=== PATIENT | female | born 1960 | race Caucasian/White ===

== ENCOUNTER 2022-11-25 10:20 | Outpatient (CLI) | payer OTHER, SELFPAY | END 2022-11-25 10:21 | disposition home or self-care (01) | PROVIDERS: PCP Internal Medicine; Referring Provider Internal Medicine; Visit Provider Internal Medicine | DX: Z00.00 Encounter for general adult medical examination without abnormal findings (principal); E03.9 Hypothyroidism, unspecified; E53.8 Deficiency of other specified B group vitamins; Z13.6 Encounter for screening for cardiovascular disorders | CPT/HCPCS: 80061; 82607; 82947; 84443 ==

== ENCOUNTER 2023-05-12 15:27 | Outpatient (CLI) | payer OTHER, SELFPAY | END 2023-05-12 15:28 | disposition home or self-care (01) | PROVIDERS: PCP Internal Medicine; Referring Provider Internal Medicine; Visit Provider Physician Assistant | DX: R30.0 Dysuria (principal); N39.0 Urinary tract infection, site not specified | CPT/HCPCS: 87086; 87186 ==

== ENCOUNTER 2023-05-26 13:19 | Outpatient (CLI) | payer OTHER, SELFPAY | END 2023-05-26 13:20 | disposition home or self-care (01) | LOC: NFLDREF 05-28 08:25 | PROVIDERS: PCP Internal Medicine; Referring Provider Internal Medicine; Visit Provider Registered Nurse | DX: N39.0 Urinary tract infection, site not specified (principal); N30.01 Acute cystitis with hematuria; Z13.89 Encounter for screening for other disorder | CPT/HCPCS: 87086 ==

== ENCOUNTER 2024-02-09 10:07 | Outpatient (CLI) | payer OTHER, SELFPAY ==
--- OUTSIDE RECORDS SUMMARY | 2024-02-13 15:55 | XMS_ITS | Clinical Summary ---
Author Organization [facility] Address [address] [place] [id number] Care Team Providers Care Law Instructor Name Role Phone System, Provider Not In Primary Care Provider Un available Allergies Active Allergy Reactions Criticality Noted Date Comments Sulfa Antibiotics Other (See Comments),Rash Medium 09/18/2015 Skin turned orange Medications No known medications Social History Tobacco Use Types Packs/Day Years Used Date Smoking Tobacco: Never Smokeless Tobacco: Never Alcohol Use Standard Drinks/Week Comments Yes 0 (1 standard drink = 0.6 oz pur e alcohol) Adolescent Education Answer Date Record ed Getting School Help Needed Not on file 06/04 Sex and Gender Information Value Date Recorded Sex Assigned at Not on file Gender Identity Not on file Sexual Orientation Not on file Last Filed Vital Signs Vital Sign Reading Time Taken Comments Blood Pressure 110/70 10/09/2021 4:42 PM DIRECTOR OF PROPERTY MANAGEMENT Pulse 86 10/09/2021 4:42 PM DIRECTOR OF PROPERTY MANAGEMENT Temperature - - Respiratory Rate 16 10/09/2021 4:42 PM DIRECTOR OF PROPERTY MANAGEMENT Oxygen Saturation 97% 10/09/2021 4:42 PM DIRECTOR OF PROPERTY MANAGEMENT Inhaled Oxygen Concentration - - Weight 59.9 kg (132 lb) 10/09/2021 4:42 PM DIRECTOR OF PROPERTY MANAGEMENT Height - - Body Mass Index - - Plan of Treatment Health Maintenance Due Date Last Done Comments ADVANCE CARE PLANNING 1960 ANNUAL REVIEW OF HM ORDERS 1960 CT COLONOGRAPHY 1960 FIT 1960 FLEX SIG 1960 GLUCOSE 1960 YEARLY PREVENTIVE VISIT 1960 sDNA (Cologuard) 1960 COLONOSCOPY 1969 COLORECTAL CANCER SCREENING 1969 HIV SCREENING 1974 HEPATITIS C SCREENING 1977 PAP 1980 LIPID 1999 RSV VACCINE ( & 60+) (1 - 1-dose 60+ series) 2019 COVID-19 Vaccine ( season) 2023 06/06/2022, 02/03/2022, 07/23/2021, Additional history exists MAMMO SCREENING 08/03/2023 08/03/2021 PHQ-2 (once per calendar year) 2023 INFLUENZA VACCINE (Season Ended) 2024 06/06/2022, 05/22/2021, 06/27/2020, Additional history exists DTAP/TDAP/TD IMMUNIZATION (2 - Td or Tdap) 06/26/2025 06/26/2015 Pneumococcal Vaccine: Pediatrics (0 to 5 Years) and At-Risk Patients (6 to 64 Years) Aged Out 04/05/2018, 06/26/2015 No longer eligibl e based on patient's age to complete this topic ZOSTER IMMUNIZATION Completed 03/14/2019, 8 HPV IMMUNIZATION Aged Out No longer e ligible based on patient's age to complete this topic IPV IMMUNIZATION Aged Out No longer e ligible based on patient's age to complete this topic MENINGITIS IMMUNIZATION Aged Out No l onger eligible based on patient's age to complete this topic RSV MONOCLONAL ANTIBODY Aged Out No l onger eligible based on patient's age to complete this topic Care Teams Law Instructor Relationship Specialty Start Date End Date System, Provider Not In PCP - General Clinic 10/09/21
--- OUTSIDE RECORDS SUMMARY | 2024-02-13 15:55 | XMS_ITS | Referral Summary ---
Author Organization [facility] Address [address] [place] [id number] Care Team Providers Care Director Health Name Role Phone System, Provider Not In [...] Comments Blood Pressure 110/70 10/09/2021 4:42 PM VACUUM FORM OPERATOR Pulse 86 10/09/2021 4:42 PM VACUUM FORM OPERATOR Temperature - - Respiratory Rate 16 10/09/2021 4:42 PM VACUUM FORM OPERATOR Oxygen Saturation 97% 10/09/2021 4:42 PM VACUUM FORM OPERATOR Inhaled Oxygen Concentration - - Weight 59.9 kg (132 lb) 10/09/2021 4:42 PM VACUUM FORM OPERATOR Height - - Body Mass Index - - Plan of Treatment Not on file Care Teams Director Health Relationship Specialty Start Date End Date System, Provider Not In PCP - General Clinic 10/09/21
--- OUTSIDE RECORDS SUMMARY | 2024-02-13 15:55 | XMS_ITS | Clinical Summary ---
Author Organization [facility] Address [place], [place] [address] Care Team Providers Care Steel Erector Apprentice Name Role Phone Christa Gallegos MD Primary Care Provider [phone] Pcp, No Unavailable Unavailable Allergies Active Allergy Reactions Criticality Noted Date Comments Sulfa (Sulfonamide Antibiotics) Rash Medium 09/18/2015 Sulfa (Sulfonamide Antibiotics) Other - Describe In Comment Field 09/04/2019 Skin turned orange Medications Medication Sig Dispensed Refills Start Date End Date Status mometasone 0.1% (ELOCON 0.1% CREAM) 0.1 % cream APPLY TO AFFECTED AREA TWICE DAILY FOR SEVEN DAYS THEN WEDNESDAYS & SATURDAYS TWICE DAILY 07/16/2019 Active pimecrolimus (ELIDEL) 1 % cream 07/24/2019 Active levothyroxine (SYNTHROID) 100 mcg tablet 06/17/2019 Active SUMAtriptan (IMITREX) 100 mg tablet TAKE ONE TABLET BY MOUTH AT ONSET OF HEADACHE NEEDED MAY REPEAT ONCE IN 2HRS MAX. 200MG/24HRS 05/24/2019 Active valACYclovir (VALTREX) 1 gram tablet TAKE 2 TABLETS NOW AND 2 TABLETS IN 12 HOURS 06/28/2019 Active loratadine (CLARITIN) 10 mg tablet Take 10 mg by mouth once daily. Active metroNIDAZOLE 0.75 % cream APPLY TO AFFECTED AREA ON FACE ONCE DAILY ON DAYS NOT USING MOMETASONE 03/19/2022 Active estradioL (ESTRACE) 0.01% (0.1 mg/g) vaginal cream 12/25/2022 Active raloxifene (EVISTA) 60 mg tabletIndications:[facility] cancer screening, high risk patient,At high risk for breast cancer,Atypical ductal hyperplasia of breast Take 1 Tablet (60 mg) by mouth once daily. 90 Tablet 3 08/09/2023 Active Active Problems Problem Noted Date Diagnosed Date Atypical ductal hyperplasia of left breast 09/04 Atypical lobular hyperplasia (ALH) of left breas t 09/04/2019 Adenomatous colon polyp 09/22/2015 Overview: Colonoscopy 08/2015 polyp repeat in 5 years Colonoscopy 01/2021 long colon, repeat in 7 years, PEG 8L Encounters Date Type Department Care Team Description 02/06/2024 Telephone [facility] [address] [facility] [place] [address] [place] [address] Armida Blank RN Prior Authorization (Breat MRI ) 01/30/2024 Telephone [facility] [address] [address] [place] [address] Armida Jay RN breast MRI result 01/29/2024 12:36 PM CDT - 01/29/2024 11:59 PM CDT Hospital Encounter [facility] [address] [place] [address] Marisela Dozier PA At high risk for breast cancer 01/29/2024 Travel 01/10/2024 2:15 PM CDT Office Visit [facility] [address] [place] [address] Clay Wheatley, DPM Consult (Right achilles pain) 01/10/2024 Travel from Last 3 Months Family History Medical History Relation Name Comments Cancer-ovarian Maternal Aunt 70's yrs old Cancer No Family History Cancer-breast No Family History Cancer-colon No Family History Cancer-prostate No Family History Relation Name Status Comments Maternal Aunt age 70 Other mat aunt Alive Social History Tobacco Use Types Packs/Day Years Used Date Smoking Tobacco: Never Smokeless Tobacco: Never Tobacco Cessation:Counseling Given: Yes Alcohol Use Standard Drinks/Week Comments Yes 0 (1 standard drink = 0.6 oz pur e alcohol) 5-7 glasses of wine weekly Social Connections Answer Date Recorded Frequency of Communication with Friends and Fami ly Not on file 2021 Financial Resource Strain Answer Date R ecorded Difficulty of Paying Living Expenses Not on file 2021 Difficulty of Paying Living Expenses Not on file 2021 Sex and Gender Information Value Date Recorded Sex Assigned at Not on file Gender Identity Not on file Sexual Orientation Not on file Obstetrics History Last Filed Vital Signs Vital Sign Reading Time Taken Comments Blood Pressure 112/73 01/10/2024 2:26 PM CDT tow er Pulse 62 01/10/2024 2:26 PM CDT Temperature 36.2 ??C (97.2 ??F) 08/09/2023 1:14 PM CS T Respiratory Rate 18 08/09/2023 1:14 PM POND SAWYER Oxygen Saturation 99% 01/10/2024 2:26 PM CDT Inhaled Oxygen Concentration - - Weight 69.9 kg (154 lb) 08/09/2023 1:14 PM POND SAWYER Height 175.3 cm (5' 9) 08/09/2023 1:14 PM POND SAWYER Body Mass Index 22.74 08/09/2023 1:14 PM POND SAWYER Plan of Treatment Health Maintenance Due Date Last Done Comments Tdap 1970 Depression screening for age 12+ 1971 HIV for age 15-65 1974 Hepatitis C screening for age 18-79 1977 Tetanus booster 1979 Pap test for age 21-65 1980 Lipids for age 45-75 2004 Zoster (shingles) series for age 50+ (1 of 2) 2009 Influenza for age 50-64 04/28/2024 BMI (ht and wt on same day) for age 18+ 08/09/2024 08/09/2023, 08/04/2022, 08/03/2021, Additional history exists Mammogram for age 45-75 08/09/2024 08/09/20, 08/04/2022, 08/03/2021, Additional history exists Colonoscopy through age 75 02/05/202602/05, 02/05/2021, 09/18/2015, Additional history exists COVID-19 vaccine series Completed 06/12/20, 06/06/2022, 02/03/2022, Additional history exists Pneumococcal series for age 6-64 Aged Out No longer eligible based on patient's age to complete this topic Procedures Procedure Name Priority Date/Time Associated Diagnosis Comments MR BREAST CAD WWO BILATERAL Routine 01/29/2024 1:34 PM CDT At high risk for breast cancer XR MAMMO TETE BILAT SCREEN Routine 08/09/2023 12:58 PM POND SAWYER Encounter for screening mammogram for malignant neoplasm of breast COLONOSCOPY 02/05/2021 9:55 AM CDT from Last 3 Months or Most Recently Relevant to Health Maintenance Results * MR BREAST CAD WWO BILATERAL (01/29/2024 1:34 PM CDT) Anatomical Region Laterality Modality BREASTS, Breast Left, Breast Right Bilateral Magnetic Resonance 01/30/2024 9:10 AM CDT Narrative 01/30/2024 1:25 PM CDT For Patients: As a result of the Cures Act, medical imaging exams and procedure reports are released immediately into your electronic medical record. ??You may view this report before your referring provider. ?? If you have questions, please contact your health care provider. BILATERAL BREAST MRI WITHOUT AND WITH GADOLINIUM, 01/29/2024 CLINICAL HISTORY: Personal history LEFT breast atypical ductal hyperplasia, atypical lobular hyperplasia FEA and papilloma diagnosed by needle biopsy August 2019. Surgical excision LEFT breast September 20, 2019. INDICATION FOR BREAST MRI: Screening in this woman with increased risk for breast cancer. COMPARISON STUDIES: BILATERAL mammogram 08/09/2023, breast MRI 01/24/2023. CONTRAST: 20 mL Clariscan. TECHNIQUE: The patient was positioned prone using a breast coil. Multiple imaging sequences were obtained using 1-1.5 mm thick slices with no gap. The image sequences include T2-weighted STIR in the axial plane, T1-weighted nonfat-saturated gradient echo in the axial plane, pre- and post-contrast T1-weighted FLASH 3D with fat suppression in the axial plane, and T1-weighted FLASH high resolution 3D with fat suppression in the sagittal plane. Image post-processing was performed on a [employer] workstation. Complex 3D rendering including maximum intensity projections (MIPS) and volumetric renderings were obtained to optimize visualization of the extent of pathology and relationship to the nipple, skin, and chest wall. This aids in determining feasibility of breast conservation surgery. Subtraction, multiplanar reconstruction, mean curve determination, and angiogenesis mapping were also performed. The study was technically adequate. FINDINGS: Amount of Fibroglandular Tissue: Scattered fibroglandular tissue. Breast Background Enhancement: Minimal. RIGHT Breast: No suspicious mass or non mass enhancement. LEFT Breast: No suspicious mass or non-mass enhancement. Excisional biopsy scar . Lymph Nodes: No enlarged or morphologically abnormal lymph nodes. IMPRESSIONS AND RECOMMENDATIONS: Negative for signs of malignancy. Follow-up with annual screening mammography. If continuing breast MRI this best offset from the mammogram by 6 months. BI-RADS Category 2: Benign Dictated by: Tressa Grayson MD @01/30/2024 9:10:47 AM ??CRL/leda Marisela LYLES MR * XR MAMMO TTEE BILAT SCREEN (08/09/2023 12:58 PM POND SAWYER) Anatomical Region Laterality Modality BREASTS, Breast Left, Breast Right Bilateral Mammography Impressions 08/09/2023 1:48 PM POND SAWYER ??There is no radiographic evidence for malignancy. ??Recommend annual mammograms. MAMMOGRAM ASSESSMENT: ??ACR 2 Benign PATIENTS: You will also receive a letter with your examination results in an easy to read format. ??If you have questions about your results, please contact your referring provider. Narrative 08/09/2023 1:48 PM POND SAWYER For Patients: As a result of the Century Cures Act, medical imaging exams and procedure reports are released immediately into your electronic medical record. You may view this report before your referring provider. If you have questions, please contact your health care provider. XR MAMMO TETE BILAT SCREEN [[id number]] CLINICAL HISTORY: ??This is an asymptomatic 62 y.o. patient. INDICATION FOR EXAM: Mammogram Screening. TECHNIQUE: CC & MLO views were obtained. ??This study was evaluated with the assistance of Computer-Aided Detection. Breast Tomosynthesis was used in interpretation. COMPARISON FILMS: Yes 08/04/22 [facility] 08/03/21 [facility] FINDINGS: ??The breasts are heterogeneously dense, which may obscure small masses. ??No suspicious masses or microcalcifications. ??There are post surgical changes of left breast. [place] Maryjane Fragoso RAFAL MAMMO * COLONOSCOPY (02/05/2021 9:55 AM CDT) 02/05/2021 9:55 AM CDT Narrative Transcriptions Mohit Montoya MD - 02/05/2021 11:00 AM CDT Patient Name: Iliana Wood Procedure Date: 02/05/2021 Gender: Female Date of : 1960 Admit Type: Outpatient Procedure: Colonoscopy Proceduralist: Mohit Montoya MD , Arielle Hendricks RN(Nurse) Indications/Pre-Op Diagnosis: Surveillance: Personal history ofadenomatous polyps on last colonoscopy 5 years ago, Last colonoscopy: August 2015 Medications: Fentanyl 100 micrograms IV, Midazolam 3 mgIV, The level of sedation administered wasmoderate Procedure Description: The patient had risks, benefits and alternatives explained to andgave informed consent. The patient had a stable cardiopulmonary status and judged an adequate candidate for conscious sedation. The Colonoscope was passed through the anus and advanced to thececum, identified by appendiceal orifice and ileocecal valve. Thecolonoscopy was performed without difficulty. The patient tolerated the procedure well. The quality of the bowel preparation was good. The ileocecal valve, appendiceal orifice, and rectum were photographed. Complications: No immediate complications. Estimated Blood Loss & Specimen: Estimated blood loss: none. Specimen collected - None Findings: The perianal and digital rectal examinations were normal. The colon (entire examined portion) was moderately redundant. The exam was otherwise without abnormality on direct and retroflexion views. Impressions/Post-Op Diagnosis: - Redundant colon. - The examination was otherwise normal on direct and retroflexionviews. - No specimens collected. Recommendation: - Patient has a contact number available for emergencies. The signsand symptoms of potential delayed complications were discussed with the patient. Return to normal activities tomorrow. Written discharge instructions were provided to the patient. - Resume previous diet. - Continue present medications. - Repeat colonoscopy with adult scope in 7 years for surveillance,Peg 8L. Moderate Sedation: Moderate (conscious) sedation was administered by the endoscopy nurse and supervised by the endoscopist. The following parameters were monitored: oxygen saturation, heart rate, respiratory rate, blood pressure, adequacy of pulmonary ventilation and reponse to care. Please refer to the patient's medical record flowsheets and nursing notes for moderate sedation details. Total physician intraservice time was 18 minutes. Mohit Montoya MD 02/05/2021 10:59:58 AM This report has been signed electronically. Note Initiated On: 02/05/2021 9:55 AM Procedure Code(s): --- Professional --- 50358, Colonoscopy, flexible; diagnostic, including collection of specimen(s) bybrushing or washing, when performed (separateprocedure) Diagnosis Code(s): --- Professional --- Z86.010, Personal history of colonicpolyps Q43.8, Other specified congenitalmalformations of intestine CPT copyright 2020 [employer]. All rights reserved. The codes documented in this report are preliminary and upon gis specialist reviewmay be revised to meet current compliance requirements. Scope In: 10:37:54 AM Scope Withdrawal Time 0 hours 9 minutes 27 seconds Scope Out: 10:53:32 AM Mohit Montoya MD PROCEDURE ORD from Last 3 Months or Most Recently Relevant to Health Maintenance Advance Directives * Full Code (Latest Code Status on File) Date Activated Date Inactivated Comments 09/20/2019 12:21 PM 09/20/2019 8:58 PM Care Teams Steel Erector Apprentice Relationship Specialty Start Date End Date Christa Gallegos MD [address] [place] [address] PCP - General Internal Medicine 08/26/19 Pcp, No . 08/26/19
== END 2024-02-09 10:08 | disposition home or self-care (01) ==
LOC: NFLDREF 02-13 15:54
PROVIDERS: PCP Internal Medicine; Referring Provider Internal Medicine; Visit Provider Internal Medicine
DX: E53.8 Deficiency of other specified B group vitamins (principal); E03.9 Hypothyroidism, unspecified
CPT/HCPCS: 82607; 84443

== ENCOUNTER 2024-03-10 20:48 | Emergency (ER) | payer OTHER, SELFPAY ==
--- NOTE | 2024-03-10 21:01 | CRLHL7_ITS ---
For Patients: As a result of the Cures Act, medical imaging exams and procedure reports are released immediately into your electronic medical record. You may view this report before your referring provider. If you have questions, please contact your health care provider. Indication: Pain/fall Technique: Three views of the left 5th toe Comparison: None Findings/Impression: Transverse fracture through the proximal phalanx of left 5th toe. No other acute abnormality appreciated. Dictated by William Vargas MD @ 03/10/2024 10:09:56 PM (Electronically Signed)
[2024-03-10 21:02] VITALS: BP 127/82; PULSE 69; RESP 16; TEMP 36.3; O2SAT 98; BMI 23.0
--- NOTE | 2024-03-10 21:09 | ED.LOWEXIN ---
HPI - Extremity Injury (Lower) General Chief Complaint: Extremity Pain/Injury, Lower Stated Complaint: broken left little toe Time Seen by Provider: 03/10/24 20:59 History of Present Illness HPI Narrative: This 63-year-old female comes in with an injury to her left little toe that occurred earlier today. She was playing with her grand niece and injured her little toe. She states that it looked like it was sticking off to a direction that it was not supposed to when she initially injured it. Currently it appears to be in good alignment but there is swelling with some ecchymosis around the little toe. He does not report any other injury. Related Data Home Medications ?Medication ?Instructions ?Recorded ?Confirmed estradiol 0.01% (0.1 mg/gram) vaginal 11/29/22 02/12/24 vaginal cream metronidazole 0.75 % topical cream applic topical DAILY 11/29/22 02/12/24 pimecrolimus 1 % topical cream applic topical DAILY 11/29/22 02/12/24 valacyclovir 1 gram tablet 4,000 mg PO ONCE PRN 05/16/23 02/12/24 cholecalciferol (vitamin D3) 50 50 mcg PO QDAY 02/12/24 02/12/24 mcg (2,000 unit) capsule magnesium oxide 250 mg PO QDAY 02/12/24 02/12/24 mecobalamin (vitamin B12) 1,000 1,000 mcg PO QDAY 02/12/24 02/12/24 mcg lozenges raloxifene 60 mg tablet 60 mg PO DAILY 02/12/24 02/12/24 Previous Rx's ?Medication ?Instructions ?Recorded levothyroxine 100 mcg tablet 100 mcg PO QDAY #90 tabs 02/12/24 sumatriptan succinate 100 mg tablet 100 mg PO .PRN PRN migraine 02/12/24 headache #9 tabs Allergies Allergy/AdvReac Type Severity Reaction Status Date / Time Sulfa (Sulfonamide Allergy Verified 02/12/24 14:05 Antibiotics) Review of Systems Status of ROS: Reports: 10 or more systems reviewed and unremarkable except as noted in History and below Narrative: Constitutional: No fevers, no weight gain or loss. Eyes: No discharge. No vision changes. HENT: No congestion, no sore throat, no ear pain. Cardiovascular: No chest pain, no palpitations. Respiratory: No shortness of breath, no wheezes, no cough. Gastrointestinal: No abdominal pain, no vomiting, no diarrhea. Genitourinary: No dysuria, no hematuria. Musculoskeletal: Injury of the left little toe as described above. Skin: No rashes, no pruritis. Neurological: No dizziness, weakness, sensory change, speech change. Endo/Heme/Allergies: No bruising or bleeding. No polydipsia. Pysch: no suicidality, no anxiety, no insomnia. All other systems reviewed and are negative. [facility] Surgical History Status post LASIK surgery of both eyes ?Z98.890 - Other specified postprocedural states (ICD-10) History of tonsillectomy ?Z90.89 - Acquired absence of other organs (ICD-10) History of lumpectomy of left breast ?Z98.890 - Other specified postprocedural states (ICD-10) Social History (Updated 02/12/24 @ 16:45 by Jacinda Iverson ~ [facility]) What is your current living situation?: I presently have a place to live Problems where you live: no known problems In the past 12 months, utilities in danger of being shut off: no In past 12 months, lack of transportation kept you from medical appts, meetings, work, or getting things needed for daily living: no In the past 12 mos, have been you worried that your food would run out before you had money to buy more?: never true In the past 12 mos, the food you bought just didn't last and you didn't have money to buy more?: never true Smoking Status: Never smoker Do you use any of these nicotine containing products: None Second hand tobacco smoke exposure: No How often do you have a drink containing alcohol: never How often do you have six or more drinks on one occasion: Never AUDIT-C Alcohol total score: 0 Non-prescribed substance use: denies use How often does anyone, including family, friends and others, physically hurt you: never How often does anyone, including family, friends and others, insult or talk down to you: never How often does anyone, including family, friends and others, threaten you with harm: never How often does anyone, including family, friends and others, scream or curse at you: never Little interest or pleasure in doing things: not at all Feeling down, depressed, or hopeless: not at all service: No Exam Narrative: Exam Narrative: Constitutional: Well-developed, well-nourished, no acute distress. HEENT: Normocephalic, atraumatic. Neck: Normal range of motion. Nontender. Supple. Heart: Regular. No murmurs. Normal rate. Intact distal pulses. Lungs: Clear to auscultation. No chest discomfort. No wheezes, rhonchi, or rales. Abdomen: Normal bowel sounds. Nontender. No rebound tenderness. Genitalia: Deferred. Back: No midline tenderness. Normal range of motion. Extremities: Left little toe has some swelling with ecchymosis but appears to be in proper alignment. Skin: Intact. No rash. Warm. No erythema or pallor. Neurologic: No altered sensation. No weakness. Alert and oriented. Psychiatric: No suicidality. No anxiety or depression. No insomnia. Nursing notes and vitals signs are reviewed. Const: Vital Signs, click to edit/add: Vital Signs - 24 hr 03/10/24 21:02 Temperature 97.3 F L Pulse Rate [Pulse Oximeter] 69 Respiratory Rate 16 Blood Pressure [Ri ght Upper Arm] 127/82 Pulse Oximetry 98 Oxygen Delivery Me thod Room Air Course Vital Signs Vital signs: Initial Vital Signs Temperature 97.3 F L 03/10/24 21:02 Temperature Source Temporal Artery Scan 03/10/24 21:02 Pulse Rate 69 03/10/24 21:02 Respiratory Rate 16 03/10/24 21:02 Blood Pressure 127/82 03/10/24 21:02 Blood Pressure Mean 97 03/10/24 21:02 Blood Pressure Position Sitting 03/10/24 21:02 Pulse Oximetry 98 03/10/24 21:02 Oxygen Delivery Method Room Air 03/10/24 21:02 Vital Signs Temperature 97.3 F L 03/10/24 21:02 Pulse Rate 69 03/10/24 21:02 Respiratory Rate 16 03/10/24 21:02 Blood Pressure 127/82 03/10/24 21:02 Pulse Oximetry 98 03/10/24 21:02 Oxygen Delivery Method Room Air 03/10/24 21:02 Temperature 97.3 F L 03/10/24 21:02 Pulse Rate 69 03/10/24 21:02 Respiratory Rate 16 03/10/24 21:02 Blood Pressure 127/82 03/10/24 21:02 Pulse Oximetry 98 03/10/24 21:02 Oxygen Delivery Method Room Air 03/10/24 21:02 MDM - Extremity Injury (Lower) MDM Narrative Medical decision making narrative: This patient comes in for evaluation of an injury to her left little toe that occurred earlier today. She states that it was oriented in a direction that it was not supposed to be but now it is position is much more normal. X-ray images are obtained and by my review show no sign of fracture or dislocation except on one view there is possible nondisplaced disruption of the proximal portion of the left little toe.. Her story however is suspicious for a dislocation that spontaneously reduced. The patient did receive some Coban for martin taping her toes. She can use [id number] medicines as needed and directed for pain relief and is encouraged to increase activity as tolerated. Discharge Plan Discharge Clinical Impression: Closed dislocation of toe Patient Disposition: Home, Self-Care Condition: Improved Additional Instructions: Use [id number] medicines as needed and directed. Increase activity as tolerated. Follow up with MD return if worsening. Prescriptions: No Action pimecrolimus 1 % cream topical DAILY metronidazole 0.75 % cream topical DAILY estradiol 0.01 % (0.1 mg/gram) cream vaginal raloxifene 60 mg tablet 60 mg PO DAILY sumatriptan succinate 100 mg tablet 100 mg PO .PRN PRN (Reason: migraine headache) Qty: 9 12RF levothyroxine 100 mcg tablet 100 mcg PO QDAY Qty: 90 3RF mecobalamin (vitamin B12) 1,000 mcg lozenge 1,000 mcg PO QDAY Rx Instructions: allow to dissolve in mouth OR may chew lightly before swallowing cholecalciferol (vitamin D3) 50 mcg (2,000 unit) capsule 50 mcg PO QDAY magnesium oxide 250 mg magnesium tablet 250 mg PO QDAY valacyclovir 1 gram tablet 4,000 mg PO ONCE PRN Follow Up/Referrals: Christa Gallegos MD [Primary Care Provider] - Stand Alone Forms: [employer] Info Instructions
--- OUTSIDE RECORDS SUMMARY | 2024-03-10 21:31 | XMS_ITS | Referral Summary ---
Author Organization [facility] Address [address] [place] [id number] Care Team Providers Care Photolithographic Stripper Name Role Phone System, Provider Not In [...] Comments Blood Pressure 110/70 10/09/2021 4:42 PM APPLICATIONS PROJECT MANAGER Pulse 86 10/09/2021 4:42 PM APPLICATIONS PROJECT MANAGER Temperature - - Respiratory Rate 16 10/09/2021 4:42 PM APPLICATIONS PROJECT MANAGER Oxygen Saturation 97% 10/09/2021 4:42 PM APPLICATIONS PROJECT MANAGER Inhaled Oxygen Concentration - - Weight 59.9 kg (132 lb) 10/09/2021 4:42 PM APPLICATIONS PROJECT MANAGER Height - - Body Mass Index - - Plan of Treatment Not on file Care Teams Photolithographic Stripper Relationship Specialty Start Date End Date System, Provider Not In PCP - General Clinic 10/09/21
--- OUTSIDE RECORDS SUMMARY | 2024-03-10 21:31 | XMS_ITS | Clinical Summary ---
Author Organization [facility] Address [place], [place] [address] Care Team Providers Care Surveillance Director Name Role Phone Christa Gallegos MD Primary Care Provider [phone] Pcp, No Unavailable Unavailable Allergies Active Allergy [...] cream 12/25/2022 Active raloxifene (EVISTA) 60 mg tabletIndications:[facility] cancer screening, high risk patient,At high risk [...] Type Department Care Team Description 02/06/2024 Telephone [facility] [address] [facility] [address] [place] [address] Armida Blank RN Prior Authorization (Breat MRI ) 01/30/2024 Telephone [facility] [address] [address] [place] [address] Armida Jay RN breast MRI result 01/29/2024 12:36 PM CDT - 01/29/2024 11:59 PM CDT Hospital Encounter [facility] [address] [place] [address] Marisela Dozier PA At high risk for breast cancer 01/29/2024 Travel 01/10/2024 2:15 PM CDT Office Visit [facility] [address] [place] [address] Clay Wheatley, DPM Consult (Right achilles pain) [...] T Respiratory Rate 18 08/09/2023 1:14 PM SALES AND MERCHANDISING REPRESENTATIVE Oxygen Saturation 99% 01/10/2024 2:26 PM CDT Inhaled Oxygen Concentration - - Weight 69.9 kg (154 lb) 08/09/2023 1:14 PM SALES AND MERCHANDISING REPRESENTATIVE Height 175.3 cm (5' 9) 08/09/2023 1:14 PM SALES AND MERCHANDISING REPRESENTATIVE Body Mass Index 22.74 08/09/2023 1:14 PM SALES AND MERCHANDISING REPRESENTATIVE Plan of Treatment Health Maintenance Due Date [...] TETE BILAT SCREEN Routine 08/09/2023 12:58 PM SALES AND MERCHANDISING REPRESENTATIVE Encounter for screening mammogram for malignant neoplasm [...] plane. Image post-processing was performed on a [employer] workstation. Complex 3D rendering including maximum intensity [...] ??CRL/leda Marisela LYLES MR * XR MAMMO TETE BILAT SCREEN (08/09/2023 12:58 PM SALES AND MERCHANDISING REPRESENTATIVE) Anatomical Region Laterality Modality BREASTS, Breast Left, Breast Right Bilateral Mammography Impressions 08/09/2023 1:48 PM SALES AND MERCHANDISING REPRESENTATIVE ??There is no radiographic evidence for malignancy. ??Recommend annual mammograms. MAMMOGRAM ASSESSMENT: ??ACR 2 Benign PATIENTS: You will also receive a letter with your examination results in an easy to read format. ??If you have questions about your results, please contact your referring provider. Narrative 08/09/2023 1:48 PM SALES AND MERCHANDISING REPRESENTATIVE For Patients: As a result of the Century Cures Act, medical imaging exams and procedure reports are released immediately into your electronic medical record. You may view this report before your referring provider. If you have questions, please contact your health care provider. XR MAMMO TETE BILAT SCREEN [[id number]] CLINICAL HISTORY: ??This is an asymptomatic 62 y.o. patient. INDICATION FOR EXAM: Mammogram Screening. TECHNIQUE: CC & MLO views were obtained. ??This study was evaluated with the assistance of Computer-Aided Detection. Breast Tomosynthesis was used in interpretation. COMPARISON FILMS: Yes 08/04/22 [facility] 08/03/21 [facility] FINDINGS: ??The breasts are heterogeneously dense, [...] 9:55 AM Procedure Code(s): --- Professional --- 28007, Colonoscopy, flexible; diagnostic, including collection of specimen(s) bybrushing or washing, when performed (separateprocedure) Diagnosis Code(s): --- Professional --- Z86.010, Personal history of colonicpolyps Q43.8, Other specified congenitalmalformations of intestine CPT copyright 2020 [employer]. All rights reserved. The codes documented in this report are preliminary and upon audio specialist reviewmay be revised to meet current [...] 12:21 PM 09/20/2019 8:58 PM Care Teams Surveillance Director Relationship Specialty Start Date End Date Christa Gallegos MD [address] [place] [address] PCP - General Internal Medicine 08/26/19 Pcp, No . 08/26/19
--- OUTSIDE RECORDS SUMMARY | 2024-03-10 21:31 | XMS_ITS | Clinical Summary ---
Author Organization [facility] Address [address] [place] [id number] Care Team Providers Care Beater Engineer Helper Name Role Phone System, Provider Not In [...] Comments Blood Pressure 110/70 10/09/2021 4:42 PM SPACE AND MISSILE OPERATIONS SPACELIFT Pulse 86 10/09/2021 4:42 PM SPACE AND MISSILE OPERATIONS SPACELIFT Temperature - - Respiratory Rate 16 10/09/2021 4:42 PM SPACE AND MISSILE OPERATIONS SPACELIFT Oxygen Saturation 97% 10/09/2021 4:42 PM SPACE AND MISSILE OPERATIONS SPACELIFT Inhaled Oxygen Concentration - - Weight 59.9 kg (132 lb) 10/09/2021 4:42 PM SPACE AND MISSILE OPERATIONS SPACELIFT Height - - Body Mass Index - [...] age to complete this topic Care Teams Beater Engineer Helper Relationship Specialty Start Date End Date System, Provider Not In PCP - General Clinic 10/09/21
== END 2024-03-10 21:38 | disposition home or self-care (01) ==
PROVIDERS: Emergency Provider Emergency Medicine Emergency Medical Services; PCP Internal Medicine
DX: S93.115A Dislocation of interphalangeal joint of left lesser toe(s), initial encounter (principal); W22.8XXA Striking against or struck by other objects, initial encounter
CPT/HCPCS: 73660; 99283; 99284

== ENCOUNTER 2025-01-09 13:25 | Outpatient (CLI) | payer MEDICARE, BC, SELFPAY | END 2025-01-09 13:26 | disposition home or self-care (01) | LOC: NFLDREF 01-17 00:15 | PROVIDERS: PCP Internal Medicine; Referring Provider Internal Medicine; Visit Provider Internal Medicine | DX: M85.80 Other specified disorders of bone density and structure, unspecified site (principal); E53.8 Deficiency of other specified B group vitamins; E03.9 Hypothyroidism, unspecified | CPT/HCPCS: 82306; 82607; 84443 ==